=== PATIENT | female | born 1980 | race American Indian/Alaskan Native ===

== ENCOUNTER 2016-03-16 12:10 | Emergency (ER) | payer SELFPAY ==
[2016-03-16 13:27] VITALS: BP 189/121
--- NOTE | 2016-03-16 14:18 | Emergency Department Report ---
Chief Complaint: High BP Stated Complaint: HIGH BP Time Seen by Provider: 03/16/16 14:13 - HPI History of Present Illness: Patient was referred to the ED by the chiropractor for an elevated blood pressure. Patient has been off her antihypertensive medication for two months. Patient reports mild headache - ROS Review of Systems: all other systems are unremarkable except for documentation in HPI - Exam Vital Signs: Vital Signs 03/16/16 13:19 Temperature 97.9 F Pulse Rate 58 L Blood Pressure 189/121 O2 Sat by Pulse 100 Oximetry Physical Exam: Gen: well developed and nourished, NAD Neuro: A & O times 3, GCS 15, no focal neuro deficits noted MSE screening note: Focused history and physical exam performed. Due to findings the following was ordered: laboratory studies ordered ED Disposition for MSE Condition: Stable
[2016-03-16 15:12] LABS: Basophils % (Auto) 0.5 % (0.0-1.8); Eosinophils % (Auto) 1.5 % (0.0-4.3); Hematocrit 34.1 % (30.3-42.9); Hemoglobin 10.4 gm/dl (10.1-14.3); Mean Corpuscular HGB Conc 31 % (30-34); Platelet Count 352 K/mm3 (140-440); Red Blood Count 5.12 M/mm3 (3.65-5.03); White Blood Count 6.9 K/mm3 (4.5-11.0)
[2016-03-16 15:14] LABS: Mean Corpuscular Hemoglobin 20 pg (28-32); Mean Corpuscular Volume 67 fl (79-97); Red Cell Distribution Width 20.7 % (13.2-15.2)
[2016-03-16 15:20] LABS: Alanine Aminotransferase 11 units/L (7-56); Albumin 3.9 g/dL (3.9-5); Albumin/Globulin Ratio 1.1 %; Alkaline Phosphatase 66 units/L (35-129); BUN/Creatinine Ratio 13.33; Bilirubin,Total 0.3 mg/dL (0.1-1.2); Blood Urea Nitrogen 8 mg/dL (7-17); Calcium 8.3 mg/dL (8.4-10.2); Carbon Dioxide 25 mmol/L (22-30); Chloride 102.1 mmol/L (98-107); Glucose 91 mg/dL (65-100); Sodium 139 mmol/L (137-145); Total Protein 7.3 g/dL (6.3-8.2)
[2016-03-16 15:22] LABS: Anion Gap 16 mmol/L
[2016-03-16 15:33] LABS: Bilirubin,Urine NEG (Negative); Blood,Urine NEG (Negative); Ketones,Urine NEG (Negative); Leukocyte Esterase,Urine NEG (Negative); Mucus,Urine 3+ /HPF; Nitrite,Urine NEG (Negative); Protein,Urine <15 mg/dL mg/dL (Negative)
--- NOTE | 2016-03-18 19:32 | ED Elopement Review ---
ED Pt Elopement review - Results review Lab results: Laboratory Tests 03/16/16 03/16/16 03/16/16 14:39 14:39 14:48 WBC 6.9 RBC 5.12 H Hgb 10.4 Hct 34.1 MCV 67 L MCH 20 L MCHC 31 RDW 20.7 H Plt Count 352 Lymph % (Auto) 43.8 H [place] % (Auto) 8.2 H Eos % (Auto) 1.5 Baso % (Auto) 0.5 Lymph # 3.0 [place] # 0.6 Eos # 0.1 Baso # 0.0 Seg Neutrophils % 46.0 Seg Neutrophils # 3.2 Sodium 139 Potassium 4.0 Chloride 102.1 Carbon Dioxide 25 Anion Gap 16 BUN 8 Creatinine 0.6 L Estimated GFR > 60 BUN/Creatinine Ratio 13.33 Glucose 91 Calcium 8.3 L Total Bilirubin 0.3 AST 20 ALT 11 Alkaline Phosphatase 66 Total Protein 7.3 Albumin 3.9 Albumin/Globulin Ratio 1.1 HCG, Quant < 2 Urine Color Urine Turbidity Urine pH Ur Specific [place] Urine Protein Urine Glucose (UA) Urine Ketones Urine Blood Urine Nitrite Urine Bilirubin Urine Urobilinogen Ur Leukocyte Esterase Urine WBC (Auto) Urine RBC (Auto) U Epithel Cells (Auto) Urine Mucus 03/16/16 15:13 WBC RBC Hgb Hct MCV MCH MCHC RDW Plt Count Lymph % (Auto) [place] % (Auto) Eos % (Auto) Baso % (Auto) Lymph # [place] # Eos # Baso # Seg Neutrophils % Seg Neutrophils # Sodium Potassium Chloride Carbon Dioxide Anion Gap BUN Creatinine Estimated GFR BUN/Creatinine Ratio Glucose Calcium Total Bilirubin AST ALT Alkaline Phosphatase Total Protein Albumin Albumin/Globulin Ratio HCG, Quant Urine Color Yellow Urine Turbidity Clear Urine pH 6.0 Ur Specific [place] 1.023 Urine Protein <15 mg/dl Urine Glucose (UA) Neg Urine Ketones Neg Urine Blood Neg Urine Nitrite Neg Urine Bilirubin Neg Urine Urobilinogen 2.0 Ur Leukocyte Esterase Neg Urine WBC (Auto) 3.0 Urine RBC (Auto) 8.0 U Epithel Cells (Auto) 2.0 Urine Mucus 3+ - Call Back decision Pt Call Back Decision: Pt to F/U with PMD (for bp treatment)
== END 2016-03-16 22:30 | disposition left against medical advice (07) ==
LOC: ED 12:10
DX: R03.0 Elevated blood-pressure reading, without diagnosis of hypertension (principal); R51 Headache; Z53.21 Procedure and treatment not carried out due to patient leaving prior to being seen by health care provider
CPT/HCPCS: 36415; 80053; 81001; 84702; 85025

== ENCOUNTER 2017-10-30 15:27 | Emergency (ER) | payer OTHER ==
[2017-10-30] MEDS ORDERED: TORADOL IM ONE (17:46)
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
[2017-10-30] MEDS ORDERED: APRESOLINE PO ONE ×3 (18:11→19:00)
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
[2017-10-30 19:30] VITALS: BP 162/98
== END 2017-10-30 19:33 | disposition home or self-care (01) ==
LOC: ED 15:27
DX: S39.012A Strain of muscle, fascia and tendon of lower back, initial encounter (principal); I10 Essential (primary) hypertension; V49.49XA Driver injured in collision with other motor vehicles in traffic accident, initial encounter; Y93.89 Activity, other specified; Y92.488 Other paved roadways as the place of occurrence of the external cause; Y99.8 Other external cause status
CPT/HCPCS: 72100; 96372; 99283; J1885